=== PATIENT | female | born 1990 | race Caucasian/White ===

== ENCOUNTER 2018-01-08 15:37 | Emergency (ER) | payer SELFPAY ==
[~2018-01-08] VITALS: Ht 152.4 cm; Wt 70.3 kg
[~2018-01-08 15:37] MED LIST: HYDR-757 PO; SULF1TAB38 PO
--- OUTSIDE RECORDS SUMMARY | 2018-01-08 15:44 | XMS REPORT ---
Author Author Sumeet Gaston [facility] Address [address] [place], [place] [id number] Care Team Providers Care Care Transition Mgr Name Role Phone Sumeet Gaston PCP Allergies and Adverse Reactions Name Reaction Notes PENICILLINS tramadol Plan of Treatment Not available. Medications Active Name Start Date Estimated Completion Date SIG Comments Klonopin 1 mg oral tablet take 1 tablet by oral route daily doxycycline hyclate 100 mg oral capsule 07/12/2017 take 1 capsule (100 mg) by oral route 2 times per day for 10 days Name Start Date Expiration Date SIG Comments Celexa Oral Tablet 20 mg 01/20/2010 05/20/2010 take 1 tablet (20 mg) by oral route once daily for 30 days Ocella Oral Tablet 3-0.03 mg 01/21/2010 02/18/2010 take 1 tablet by oral route once daily for 28 days Xanax Oral Tablet 1 mg 01/20/2010 05/20/2010 take 1 tablet by oral route 2 times a day for 30 days Cortisporin Otic Drops, Suspension 3.5-10,000-1 mg-unit/mL-% 03/10/20102009 instill 4 drops into right ear by otic route 3 times per day for 7 days Sprintec (28) Oral Tablet 0.25-35 mg-mcg 03/19/2010 02/18/2011 take 1 tablet by oral route once daily for 28 days Flagyl Oral Tablet 500 mg 03/19/2010 03/26/2010 take 1 tablet (500 mg) by oral route every 12 hours for 7 days Ceftriaxone Injection Recon Soln 250 mg 03/19/2010 03/20/2010 inject 250 mg by intramuscular route as a single dose Doxycycline Hyclate Oral Tablet 100 mg 03/19/2010 04/02/2010 take 1 tablet ( 100 mg) by oral route every 12 hours for 14 days Promethazine-Codeine Oral Syrup 6.25-10 mg/5 mL 05/14/2010 take 5 milliliters by oral route every 6 hours as needed, not to exceed 30 mL in 24 hours Zithromax Z-Carter Oral Tablet 250 mg 05/14/2010 05/19/2010 take 2 tablets (500 mg) by oral route once daily for 1 day then 1 tablet (250 mg) by oral route once daily for 4 days Lortab Oral Tablet 5-500 mg 05/30/2010 06/06/2010 take 1 tablet by oral route every 6 hours as needed for pain for 7 days Flagyl Oral Tablet 500 mg 06/03/2010 06/13/2010 take 1 tablet (500 mg) by oral route every 12 hours for 10 days Tramadol Oral Tablet 50 mg 07/02/2010 take 1 tablet (50 mg) by oral route every 6 hours as needed Tylenol-Codeine #3 Oral Tablet 300-30 mg 08/06/2010 take 1 tablet by oral route every 4-6 hours as needed Discontinued Name Start Date Discontinued Date SIG Comments Tylenol-Codeine #3 Oral Tablet 300-30 mg 03/10/2010 05/14/2010 take 1 - 2 tablets by oral route every 6 hours as needed Loratadine Oral Tablet 10 mg 05/14/2010 07/12/2017 take 1 tablet (10 mg) by oral route once daily Nucynta Oral Tablet 100 mg 06/30/2010 07/02/2010 take 1 tablet (100 mg) by oral route every 6 hours as needed Too expensive Problem List Not available. Vital Signs Date Time BP-Sys(mm[Hg] BP-[place](mm[Hg]) HR(bpm) RR(rpm) Temp WT HT HC BMI BSA BMI Percentile O2 Sat(%) 07/12/2017 6:57:00 PM 120 mmHg 80 mmHg 130 bpm 98.8 F 187 lbs 65 in 31.12 kg/m2 1.97 m2 99 % 06/03/2010 11:06:00 AM 120 mmHg 79 mmHg 92 bpm 98.2 F 05/14/2010 12:50:00 PM 100 mmHg 60 mmHg 80 bpm 16 rpm 98.1 F 152 lbs 03/24/2010 9:47:00 AM 125 mmHg 77 mmHg 86 bpm 98.1 F 03/19/2010 1:32:00 PM 114 mmHg 69 mmHg 97 bpm 97.7 F 150.5 lbs 59.5 in 29.89 kg/m2 1.69 m2 03/10/2010 12:12:00 PM 104 mmHg 60 mmHg 88 bpm 18 rpm 98 F 147.187 lbs 59.5 in 29.2304 kg/m 1.6741 m 02/05/2010 9:49:00 AM 102 mmHg 62 mmHg 104 bpm 20 rpm 97.2 F 151.375 lbs 01/20/2010 8:36:00 AM 120 mmHg 70 mmHg 158.5 lbs Social History Name Description Comments Tobacco Current every day smoker Alcohol Use - Occasional lives with family member aunt Henrietta Reed lives at home Tobacco Use 3-4 cigs daily - Quit 02/15 History of Procedures Date Ordered Description Order Status 07/26/2017 11:33 AM URINE TEST Reviewed 02/05/2010 12:00 AM US EXAM PELVIC COMPLETE Reviewed 03/19/2010 12:00 AM THER/PROPH/DIAG INJ SC/IM Reviewed 03/19/2010 12:00 AM Rocephin, Per 250MG - 250MG Vial - [facility] 3281-4732-38 Reviewed 03/19/2010 12:00 AM SPECIMEN HANDLING OFFICE-LAB Reviewed 03/19/2010 12:00 AM CHLAMYDIA CULTURE Reviewed 03/19/2010 12:00 AM N.GONORRHOEAE DNA AMP PROB Reviewed 06/03/2010 12:00 AM CULTURE OTHR SPECIMN AEROBIC Reviewed 06/03/2010 12:00 AM CHYLMD TRACH DNA AMP PROBE Reviewed 06/03/2010 12:00 AM N.GONORRHOEAE DNA AMP PROB Reviewed Results Summary Date and Description Results 06/03/2010 4:55 PM NORMAL 07/12/2017 7:00 PM Test, Urine neg History Of Immunizations Not available. History of Past Illness Name Date of Onset Comments Anxiety depression Obesity Jan 20 2010 8:36AM Anxiety Disorder Jan 20 2010 8:36AM Depressive Disorder Jan 20 2010 8:36AM Panic Disorder Jan 20 2010 8:36AM Contraception, Oral Prescription Jan 20 2010 8:36AM Dysmenorrhea Jan 20 2010 8:36AM Family Planning Jan 20 2010 8:36AM Dysmenorrhea Feb 05 2010 9:50AM Pharyngitis, Acute Mar 10 2010 12:17PM Otitis Externa, Acute Mar 10 2010 12:17PM Dysmenorrhea Mar 19 2010 1:36PM Pelvic Inflammatory Disease Mar 19 2010 1:36PM Pelvic Inflammatory Disease Mar 19 2010 4:14PM Pelvic Inflammatory Disease Mar 24 2010 10:07AM Cough May 14 2010 12:53PM Rhinitis, Allergic May 14 2010 12:53PM Upper Respiratory Infections May 14 2010 12:53PM Pelvic Pain Jun 03 2010 11:08AM Abscess of left thigh Jul 12 2017 7:04PM Abscess of right thigh Jul 12 2017 7:04PM Payers Insurance Name Company Name Plan Name Plan Number Policy Number Policy Group Number Start Date [employer] [id number] Friday, 2008 History of Encounters Visit Date Visit Type Provider 07/12/2017 Office visit Sumeet Gaston APRN 06/03/2010 Office visit Moreno Guevara MD 05/14/2010 Office visit Shannen Le MD 03/24/2010 Office visit Moreno Guevara MD 03/19/2010 Office visit Moreno Guevara MD 03/10/2010 Office visit Carmen JENKINS 02/05/2010 Office visit Carmen JENKINS 01/20/2010 Office visit Bowen Guevara DO 06/18/2009 Office visit Shannen Le MD 04/18/2009 Office visit Shannen Le MD
--- OUTSIDE RECORDS SUMMARY | 2018-01-08 15:44 | XMS REPORT | Referral Summary ---
Author Author Via GREGORY Robison, [facility], [facility] Organization Via GREGORY Robison, [facility] Address Unknown Phone Unavailable Care Team Providers Care Extracorporeal Technician Name Role Phone Diana Monroe PCP Encounter VC Date(s): 12/25/14 - 12/25/14 Via GREGORY Robison, [address] [id number] Discharge Diagnosis: Abdomen pain Discharge Diagnosis: Folliculitis Discharge Disposition: 01-Home or Self Care Attending Physician: Diana Monroe DO Admitting Physician: Diana Monroe DO Vital Signs Most recent to 1 oldest [Reference Range]: Temperature Oral 36.3 degC [35.8-37.3 degC] (12/25/14 11:21 AM) Apical Heart Rate 86 bpm [60-100 bpm] (12/25/14 11:21 AM) Blood Pressure 120/76 mmHg [90-140/60-90 mmHg] (12/25/14 11:21 AM) SpO2 98 % (12/25/14 11:21 AM) Problem List Condition Effective Dates Status Health Status Informant Endometriosis(Confir Active patient med) Epilepsy(Confirmed) Active patient Folliculitis(Confirm Active ed) Obesity(Confirmed) Active patient Tobacco Active patient user(Confirmed) Allergies, Adverse Reactions, Alerts Substance Reaction Severity Status acetaminophen NAUSEA/VOMITING/ITCHING Active amoxicillin Adverse Reaction Active UNKNOWN HYDROcodone NAUSEA/VOMITING/ITCHING Active penicillin Adverse Reaction Active traMADol Active Medications clonazePAM 1 mg oral tablet 1 tabs, Oral, BID, # 60 tabs, 1 Refill(s) Start Date: 12/17/14 Stop Date: 02/15/15 Status: Ordered Depakote Oral, TID, 0 Refill(s) Start Date: 09/10/14 Status: Ordered Flomax 0.4 mg oral capsule 0.4 mg 1 caps, Oral, Daily, # 30 caps, 0 Refill(s), [id number], 1 caps Oral Daily Start Date: 12/27/14 Status: Ordered Flonase 50 mcg/inh nasal spray 2 sprays, Nasal, Daily, in each nostril Start Date: 09/17/14 Status: Ordered ibuprofen 800 mg oral tablet 1 tabs, Oral, TID, as needed for pain, # 30 tabs, 0 Refill(s), 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 Start Date: 09/10/14 Stop Date: 09/20/14 Status: Ordered [place] 7.5 mg-325 mg oral tablet 1 tabs, Oral, q6hr, as needed for pain, # 30 tabs, 0 Refill(s) Start Date: 12/28/14 Status: Ordered [place] 7.5 mg-325 mg oral tablet 1 tabs, Oral, q6hr, as needed for pain, # 30 tabs, 0 Refill(s) Start Date: 12/25/14 Status: Ordered promethazine 12.5 mg oral tablet 12.5 mg 1 tabs, Oral, q6hr, as needed for nausea/vomiting, # 60 tabs, 0 Refill(s ), Pharmacy: [facility]/pharmacy #[id number], 1 tabs Oral q6hr,PRN:as needed for nausea/ vomiting Start Date: 12/25/14 Stop Date: 12/26/15 Status: Ordered Zofran ODT 8 mg oral tablet, disintegrating 8 mg 1 tabs, Oral, q8hr, as needed for nausea/vomiting, # 30 tabs, 1 Refill(s), Pharmacy: [facility]/pharmacy #[id number], 1 tabs Oral q8hr,PRN:as needed for nausea/ vomiting Start Date: 12/25/14 Status: Ordered Results No data available for this section Immunizations No data available for this section Procedures No data available for this section Social History Social History Type Response Smoking Status Current some day smoker; Type: Cigarettes Assessment and Plan Extracted from: Title: Ambulatory Patient Education Author: Diana Monroe DO Date: 12/25/14 Family Medicine Abdominal Pain, Women Abdominal (stomach, pelvic, or belly ) pain can be caused by many things. It is important to tell your doctor: The location of the pain. Does it come and go or is it present all the time? Are there things that start the pain (eating certain foods, exercise)? Are there other symptoms associated with the pain (fever, nausea, vomiting, diarrhea)? All of this is helpful to know when trying to find the cause of the pain. CAUSES Stomach: virus or bacteria infection, or ulcer. Intestine: appendicitis (inflamed appendix ), regional ileitis (Crohn's disease ), ulcerative colitis (inflamed colon ), irritable bowel syndrome, diverticulitis (inflamed diverticulum of the colon ), or cancer of the stomach or intestine. Gallbladder disease or stones in the gallbladder. Kidney disease, kidney stones, or infection. Pancreas infection or cancer. Fibromyalgia (pain disorder ). Diseases of the female organs: Uterus: fibroid (non-cancerous ) tumors or infection. Fallopian tubes: infection or tubal . Ovary: cysts or tumors. Pelvic adhesions (scar tissue ). Endometriosis (uterus lining tissue growing in the pelvis and on the pelvic organs ). Pelvic congestion syndrome (female organs filling up with blood just before the menstrual period ). Pain with the menstrual period. Pain with ovulation (producing an egg ). Pain with an IUD (intrauterine device, control ) in the uterus. Cancer of the female organs. Functional pain (pain not caused by a disease, may improve without treatment ). Psychological pain. Depression. DIAGNOSIS Your doctor will decide the seriousness of your pain by doing an examination. Blood tests. X-rays. Ultrasound. CT scan (computed tomography, special type of X-ray ). MRI (magnetic resonance imaging ). Cultures, for infection. Barium enema (dye inserted in the large intestine, to better view it with X- rays ). Colonoscopy (looking in intestine with a lighted tube ). Laparoscopy (minor surgery, looking in abdomen with a lighted tube ). Major abdominal exploratory surgery (looking in abdomen with a large incision ). TREATMENT The treatment will depend on the cause of the pain. Many cases can be observed and treated at home. Ndzz-sja-hucvena medicines recommended by your caregiver. Prescription medicine. Antibiotics, for infection. control pills, for painful periods or for ovulation pain. Hormone treatment, for endometriosis. Nerve blocking injections. Physical therapy. Antidepressants. Counseling with a psychologist or psychiatrist. Minor or major surgery. HOME CARE INSTRUCTIONS Do not take laxatives, unless directed by your caregiver. Take aqfk-xgn-ojszusd pain medicine only if ordered by your caregiver. Do not take aspirin because it can cause an upset stomach or bleeding. Try a clear liquid diet (broth or water) as ordered by your caregiver. Slowly move to a bland diet, as tolerated, if the pain is related to the stomach or intestine. Have a thermometer and take your temperature several times a day, and record it. Bed rest and sleep, if it helps the pain. Avoid sexual intercourse, if it causes pain. Avoid stressful situations. Keep your follow-up appointments and tests, as your caregiver orders. If the pain does not go away with medicine or surgery, you may try: Acupuncture. Relaxation exercises (yoga, meditation). Group therapy. Counseling. SEEK MEDICAL CARE IF: You notice certain foods cause stomach pain. Your home care treatment is not helping your pain. You need stronger pain medicine. You want your IUD removed. You feel faint or lightheaded. You develop nausea and vomiting. You develop a rash. You are having side effects or an allergy to your medicine. SEEK IMMEDIATE MEDICAL CARE IF: Your pain does not go away or gets worse. You have a fever. Your pain is felt only in portions of the abdomen. The right side could possibly be appendicitis. The left lower portion of the abdomen could be colitis or diverticulitis. You are passing blood in your stools (bright red or black tarry stools, with or without vomiting). You have blood in your urine. You develop chills, with or without a fever. You pass out. MAKE SURE YOU: Understand these instructions. Will watch your condition. Will get help right away if you are not doing well or get worse. Document Released: 05/22/2008 Document Revised: 10/17/2012 Document Reviewed: [facility] [place] Patient Information 2014 [employer]. No follow up information was provided. Extracted from: Title: OV: abd pain, folliculitis Author: Diana Monroe DO Date: 12/25/14 Assessment/Plan 1.Abdomen pain RUQ sono ordered Zofran increased 8mg q6hr prn Add Promethazine as needed Refilled Pawhuska f/u pending sono results Ordered: Office Visit Level 3 Est 24604 Return to Clinic US Gallbladder 2.Folliculitis Bactrim DS x 10 days Warm water soaks and Hibclens baths to be continued. Ordered: Office Visit Level 3 Est 28236 Return to Clinic Orders: HYDROcodone-acetaminophen, 1 tabs, Oral, q6hr, as needed for pain, # 30 tabs, 0 Refill(s) ondansetron, 8 mg 1 tabs, Oral, q8hr, as needed for nausea/vomiting, # 30 tabs , 1 Refill(s), Pharmacy: [facility]/pharmacy #[id number], 1 tabs Oral q8hr,PRN:as needed for nausea/vomiting promethazine, 12.5 mg 1 tabs, Oral, q6hr, as needed for nausea/vomiting, # 60 tabs, 0 Refill(s), Pharmacy: [facility]/pharmacy #[id number], 1 tabs Oral q6hr,PRN:as needed for nausea/vomiting sulfamethoxazole-trimethoprim, 1 tabs, Oral, BID, X 10 days, # 20 tabs, 0 Refill(s), Pharmacy: [facility]/pharmacy #[id number] US Gallbladder Referrals to Other Providers Referred by: Diana Monroe DO
--- OUTSIDE RECORDS SUMMARY | 2018-01-08 15:44 | XMS REPORT ---
Author Author Sumeet Gaston [facility] Address [address] [place], [place] [id number] Care Team Providers Care Humane Agent Name Role Phone Sumeet Gaston PCP Allergies [...] of Procedures Date Ordered Description Order Status 02/05/2010 12:00 AM US EXAM PELVIC COMPLETE Reviewed 03/19/2010 12:00 AM THER/PROPH/DIAG INJ SC/IM Reviewed 03/19/2010 12:00 AM Rocephin, Per 250MG - 250MG Vial - [facility][NOTE 3] [id number] Reviewed 03/19/2010 12:00 AM SPECIMEN HANDLING OFFICE-LAB Reviewed 03/19/2010 12:00 AM CHLAMYDIA CULTURE Reviewed 03/19/2010 12:00 AM N.GONORRHOEAE DNA AMP PROB Reviewed 06/03/2010 12:00 AM CULTURE OTHR SPECIMN AEROBIC Reviewed 06/03/2010 12:00 AM CHYLMD TRACH DNA AMP PROBE Reviewed 06/03/2010 12:00 AM N.GONORRHOEAE DNA AMP PROB Reviewed Results Summary Date and Description Results 06/03/2010 4:55 PM NORMAL History Of Immunizations Not available. History of [...] Number Policy Group Number Start Date [facility] [id number] Friday, 2008 History of Encounters Visit Date [...]
--- OUTSIDE RECORDS SUMMARY | 2018-01-08 15:44 | XMS REPORT | Referral Summary ---
Author Author Via GREGORY Robison, [facility] Organization Via Elyssa GREGORY Field, [facility] Address Unknown Phone Unavailable Care Team Providers Care Shotgun Shell Loading Machine Operator Name Role Phone Diana Monroe PCP Encounter VC Date(s): 12/17/14 - 12/17/14 [facility] GREGORY Robison, [address] [address] Discharge Diagnosis: VOMITING ALONE Discharge Diagnosis: Epilepsy Discharge Diagnosis: Abdominal pain Discharge Disposition: 01-Home or Self Care Attending Physician: Diana Monroe DO Admitting Physician: Diana Monroe DO Vital Signs Most recent to 1 oldest [Reference Range]: Peripheral Pulse 104 bpm Rate [60-100 bpm] *HI* (12/17/14 3:03 PM) Blood Pressure 112/78 mmHg [90-140/60-90 mmHg] (12/17/14 3:03 PM) SpO2 98 % (12/17/14 3:03 PM) Problem List Condition Effective Dates Status Health [...] Daily, # 30 caps, 0 Refill(s), Pharmacy: [facility]/pharmacy # [id number], 1 caps Oral Daily Start Date: 12/27/14 Status: Ordered Flonase 50 mcg/inh nasal spray 2 sprays, Nasal, Daily, in each nostril Start Date: 09/17/14 Status: Ordered ibuprofen 800 mg oral tablet 1 tabs, Oral, TID, as needed for pain, # 30 tabs, 0 Refill(s), 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 Start Date: 09/10/14 Stop Date: 09/20/14 Status: Ordered Irving 7.5 mg-325 mg oral tablet 1 tabs, Oral, q6hr, as needed for pain, # 30 tabs, 0 Refill(s) Start Date: 12/28/14 Status: Ordered Irving 7.5 mg-325 mg oral tablet 1 tabs, Oral, q6hr, as needed for pain, # 30 tabs, 0 Refill(s) Start Date: 12/25/14 Status: Ordered promethazine 12.5 mg oral tablet 12.5 mg 1 tabs, Oral, q6hr, as needed for nausea/vomiting, # 60 tabs, 0 Refill(s ), Pharmacy: [facility]/pharmacy #[id number], 1 tabs Oral q6hr,PRN:as needed for nausea/ vomiting Start Date: 12/25/14 Stop Date: 12/26/15 Status: Ordered Zofran ODT 8 mg oral tablet, disintegrating 8 mg 1 tabs, Oral, q8hr, as needed for nausea/vomiting, # 30 tabs, 1 Refill(s), Pharmacy: [facility]/pharmacy #[id number], 1 tabs Oral q8hr,PRN:as needed for nausea/ vomiting Start Date: 12/25/14 Status: Ordered Results Hematology Most recent to 1 oldest [Reference Range]: WBC [4.8-10.8 8.7 10*3/uL 10*3/uL] (12/17/14 3:32 PM) RBC [4.00-5.20 4.44 10*6/uL 10*6/uL] (12/17/14 3:32 PM) Hgb [12.0-16.0 13.5 gm/dL gm/dL] (12/17/14 3:32 PM) Hct [37.0-47.0 %] 39.2 % (12/17/14 3:32 PM) MCV [82.0-99.0 fL] 88.3 fL (12/17/14 3:32 PM) MCH [27.0-32.0 pg] 30.4 pg (12/17/14 3:32 PM) MCHC [32.0-36.0 34.4 gm/dL gm/dL] (12/17/14 3:32 PM) RDW [11.5-14.5 %] 12.7 % (12/17/14 3:32 PM) Platelet [150-400 392 10*3/uL 10*3/uL] (12/17/14 3:32 PM) MPV [8.8-14.8 fL] 10.8 fL (12/17/14 3:32 PM) Immature 0.1 % Granulocytes (12/17/14 3:32 PM) [0.0-1.0 %] Neutrophils [51-75 39 % %] *LOW* (12/17/14 3:32 PM) Lymphocytes [20-46 52 % %] *HI* (12/17/14 3:32 PM) Monocytes [4-11 %] 7 % (12/17/14 3:32 PM) Eosinophils [0-4 %] 2 % (12/17/14 3:32 PM) Basophils [0-2 %] 0 % (12/17/14 3:32 PM) Neutro Absolute 3.41 10*3 [1.90-7.00 10*3] (12/17/14 3:32 PM) Lymph Absolute 4.50 10*3 [0.80-3.30 10*3] *HI* (12/17/14 3:32 PM) [place] Absolute 0.59 10*3 [0.30-1.00 10*3] (12/17/14 3:32 PM) Eos Absolute 0.14 10*3 [0.00-0.50 10*3] (12/17/14 3:32 PM) Baso Absolute 0.03 10*3 [0.00-0.20 10*3] (12/17/14 3:32 PM) Chemistry Most recent to 1 oldest [Reference Range]: Sodium Lvl [135-144 138 mEq/L mEq/L] (12/17/14 3:32 PM) Potassium Lvl 4.2 mEq/L 1 [3.5-5.2 mEq/L] (12/17/14 3:32 PM) Chloride [99-111 107 mEq/L mEq/L] (12/17/14 3:32 PM) CO2 [22-31 mEq/L] 21 mEq/L *LOW* (12/17/14 3:32 PM) AGAP [3-20] 10 (12/17/14 3:32 PM) BUN [7-19 mg/dL] 10 mg/dL (12/17/14 3:32 PM) Glucose Lvl [70-99 108 mg/dL mg/dL] *HI* (12/17/14 3:32 PM) Creatinine Lvl 0.75 mg/dL [0.57-1.11 mg/dL] (12/17/14 3:32 PM) eGFR [>60 mL/min] >60 mL/min 2 (12/17/14 3:32 PM) Calcium Lvl 9.2 mg/dL [8.9-10.5 mg/dL] (12/17/14 3:32 PM) Albumin Lvl [3.5-5.0 3.7 gm/dL gm/dL] (12/17/14 3:32 PM) Total Protein 6.2 gm/dL [6.4-8.3 gm/dL] *LOW* (12/17/14 3:32 PM) Globulin [1.8-4.0 2.5 gm/dL gm/dL] (12/17/14 3:32 PM) ALT [0-55 U/L] 13 U/L (12/17/14 3:32 PM) AST [5-34 U/L] 22 U/L (12/17/14 3:32 PM) Alk Phos [40-150 61 U/L U/L] (12/17/14 3:32 PM) Bili Total [0.2-1.2 0.3 mg/dL mg/dL] (12/17/14 3:32 PM) Lipase Lvl [8-78 43 U/L U/L] (12/17/14 3:32 PM) 1Result Comment: Specimen moderately hemolyzed. LDH, AST, Potassium and Direct Bilirubin may be affected. 2Result Comment: Multiply eGFR results by 1.21 for race. Immunizations No data available for this section Procedures No data available for this section Social History Social History Type Response Smoking Status Current some day smoker; Type: Cigarettes Assessment and Plan Extracted from: Title: Ambulatory Patient Education Author: Diana Monroe DO Date: 12/18/14 Family Medicine Abdominal Pain, Women Abdominal (stomach, [...] can be observed and treated at home. Xknt-hke-uuckwep medicines recommended by your caregiver. Prescription medicine. Antibiotics, for infection. control pills, for painful periods or for ovulation pain. Hormone treatment, for endometriosis. Nerve blocking injections. Physical therapy. Antidepressants. Counseling with a psychologist or psychiatrist. Minor or major surgery. HOME CARE INSTRUCTIONS Do not take laxatives, unless directed by your caregiver. Take cann-jtk-lzdqwkk pain medicine only if ordered by your [...] Released: 05/22/2008 Document Revised: 10/17/2012 Document Reviewed: [facility] Patient Information [address] [employer] [facility]. No follow up information was provided. Extracted from: Title: OV: seizure, abd pain Author: Diana Monroe DO Date: 12/17/14 Assessment/Plan 1.Abdominal pain 1L NS w/ 4mg Zofran given IV in the office. She reported no improvement in her symptoms following this. In fact, her belly was starting to hurt worse again. Evaluation at ER was discussed, but she really didn't want to go. RX for Irving written. Will check CBC, CMP, and lipase today and call her w/ results and plan in the AM. If no evidence of pancreatitis, will consider CT of abd as next step. Ordered: Office Visit Level 4 Est 49683 Return to Clinic 2.VOMITING ALONE Zofran 4mg IV in office. Ordered: Office Visit Level 4 Est 65038 Return to Clinic 3.Epilepsy She reports having plenty of Depakote on hand. I refilled Klonopin. Need records from [place] specialists before I can send her on to local epileptologist. Ordered: Office Visit Level 4 Est [id number] Return to Clinic Orders: clonazePAM, 1 tabs, Oral, BID, # 60 tabs, 1 Refill(s) HYDROcodone-acetaminophen, 1 tabs, Oral, q6hr, as needed for pain, # 20 tabs, 0 Refill(s) Referrals to Other Providers Referred by: Diana Monroe DO
--- OUTSIDE RECORDS SUMMARY | 2018-01-08 15:45 | XMS REPORT | Continuity of Care Document ---
Author Author [facility] Organization [facility] Address Unknown Phone Unavailable Allergies Active Description Code Type Severity Reaction Onset Reported/Identified Relationship to Patient Clinical Status Yes AMOXICILLIN [id number] DRUG N/A N/A Yes CODEINE [id number] DRUG N/A N/A Yes PENICILLIN [id number] CLASS N/A N/A Yes PENICILLINS (CLASS) [id number] CLASS N/A N/A Yes Amoxicillin Drug Allergy Adverse Reaction 02/21/2011 Yes Amoxicillin Drug Allergy N/A Adverse Reaction 02/21/2011 Yes Penicillins Drug Allergy Adverse Reaction 02/21/2011 Yes Penicillins Drug Allergy N/A Adverse Reaction 02/21/2011 Yes No Allergy Information Drug Allergy 02/23/2011 Yes No Allergy Information Drug Allergy N/A N/A 06/24/2013 Yes acetaminophen NKMA N/A NAUSEA/VOMITING/ITCHING 12/05/2013 Yes amoxicillin NKMA N/A Adverse Reaction UNKNOWN 12/05/2013 Yes HYDROcodone NKMA N/A NAUSEA/VOMITING/ITCHING 12/05/2013 Yes penicillin NKMA N/A Adverse Reaction 12/05/2013 Yes traMADol NKMA N/A N/A 12/05/2013 Yes ketorolac ketorolac Drug Allergy Unknown HIVES 05/07/2014 Yes acetaminophen acetaminophen Drug Allergy Mild HIVES 11/07/2014 Yes hydrocodone bit hydrocodone bit Drug Allergy Mild HIVES 11/07/2014 Yes Amoxicillin amoxicillin Drug Allergy Unknown HIVES/SWELLING 11/07/2014 Yes Penicillins Penicillins Drug Allergy Unknown HIVES 11/07/2014 Yes tramadol tramadol Drug Allergy Unknown SEIZURES 11/07/2014 Medications There is no data. Problems Date Dx Coded Attending Type Code Diagnosis Diagnosed By 10/03/2012 Juve Villanueva MD Final 305.1 TOBACCO USE DISORDER 10/03/2012 Juve Villanueva MD Final 616.4 VULVAR ABSCESS NEC 01/19/2013 Norman Atkinson MD Final 305.1 TOBACCO USE DISORDER 01/19/2013 Norman Atkinson MD Final 709.9 SKIN DISORDER NOS 01/19/2013 Norman Atkinson MD Admitting 782.2 LOCAL SUPERF SWELLING 01/24/2013 Nash Cobos MD Final 305.1 TOBACCO USE DISORDER 01/24/2013 Nash Cobos MD Final 614.8 FE PELV INFLAM DIS NEC 01/24/2013 Nash Cobos MD Final 623.5 NONINF VAG LEUKORRHEA 01/24/2013 Nash Cobos MD Admitting 625.9 FE GENITAL SYMPTOMS NOS 01/24/2013 Nash Cobos MD Final 789.09 ABDOMINAL PAIN-SITE NEC 06/24/2013 Binh Lindquist DO Final 305.1 TOBACCO USE DISORDER 06/24/2013 Binh Lindquist DO Final 682.6 LEG CELLULITIS 06/24/2013 Binh Lindquist DO Admitting 782.2 LOCAL SUPERF SWELLING 06/24/2013 Binh Lindquist DO Final 785.0 TACHYCARDIA NOS 09/11/2014 Binh Sorto MD Final 305.1 TOBACCO USE DISORDER 09/11/2014 Binh Sorto MD Final 723.1 CERVICALGIA 09/11/2014 Binh Sorto MD Reason 724.5 BACKACHE, UNSPECIFIED 09/11/2014 Binh Sorto MD Final 848.9 UNSPECIFIED SITE OF SPRAIN AND STRAIN 09/11/2014 Binh Sorto MD Final 924.9 CONTUSION OF UNSPECIFIED SITE Procedures Code Description Performed By Performed On 86.04 OTHER SKIN SUBQ I D Fausto STINSON, Renee L 12/16/2012 Results Test Result Range GLUCOSE (POC) - 12/16/12 10:39 GLUCOSE (POC) 93 mg/dL 70-99 CHEM/HEM PROFILE-BEDSIDE - 05/07/14 00:30 POTASSIUM 3.7 mmol/L 3.5-5.3 METHOD Bedside ANION GAP 11 mmol/L 10-20 METHOD Bedside GLUCOSE 88 mg/dL 70-99 BLOOD UREA NITROGEN 9 mg/dL 7-20 CREATININE 0.9 mg/dL 0.6-1.0 HEMOGLOBIN 12.6 gm/dL 12.0-16.0 HEMATOCRIT 37.0 % 37.0-47.0 SODIUM 137 mmol/L 135-148 CHLORIDE 108 mmol/L 98-110 CARBON DIOXIDE 23 mmol/L 21-32 CALCIUM IONIZED 4.6 mg/dL 4.5-5.3 CBC W/DIFF - 05/07/14 00:35 EOSINOPHIL # 0.1 k/cumm 0.1-0.5 EOSINOPHIL % 1 % 2-4 GRANULOCYTE # 4.6 k/cumm 2.0-9.0 GRANULOCYTE % 50 % 50-75 LYMPHOCYTE # 3.9 k/cumm 1.0-4.0 LYMPHOCYTE % 43 % 20-30 MEAN CELL HGB 31.0 pg 27.0-33.0 MEAN CELL HGB CONCENTRATION 34.9 g/dL 32.0-37.0 MEAN CELL VOLUME 89.1 fl 80.0-100.0 MONOCYTE # 0.5 k/cumm 0.1-1.0 MONOCYTE % 6 % 4-6 RED BLOOD CELL 4.67 m/cumm 4.00-6.00 RED CELL DISTRIBUTION WIDTH 12.0 % 11.0-15.6 WHITE BLOOD CELL 9.1 k/cumm 5.0-10.0 HEMOGLOBIN 14.5 gm/dL 12.0-16.0 HEMATOCRIT 41.6 % 37.0-47.0 PLATELET COUNT 359 k/cumm 150-400 HEPATIC FUNCTION PANEL - 05/07/14 00:35 BILI UNCONJUGATED 0.2 mg/dL 0.0-0.7 AST/SGOT 11 Units/L 10-37 ALT/SGPT 21 Units/L < 66 TOTAL PROTEIN 7.1 gm/dL 6.4-8.2 ALBUMIN 3.4 gm/dL 3.4-5.0 BILI TOTAL 0.3 mg/dL 0.0-1.0 ALKALINE PHOSPHATASE TOTAL 66 IU/L 45-117 BILI CONJUGATED 0.1 mg/dL 0.0-0.3 URINALYSIS, ROUTINE - 05/07/14 00:35 UA LEUKOCYTE ESTERASE DIPSTICK NEGATIVE NEGATIVE UA NITRITE DIPSTICK NEGATIVE NEGATIVE UA PROTEIN DIPSTICK NEGATIVE NEGATIVE UA GLUCOSE DIPSTICK NEGATIVE NEGATIVE UA KETONE DIPSTICK NEGATIVE NEGATIVE UA UROBILINOGEN DIPSTICK NORMAL NORMAL UA BILIRUBIN DIPSTICK NEGATIVE NEGATIVE UA BLOOD DIPSTICK NEGATIVE NEGATIVE UA SPECIFIC GRAVITY 1.005 1.015-1.025 UR PH 7.0 5.0-7.0 UR TEST - 05/07/14 00:35 UR TEST NEGATIVE NEGATIVE URINALYSIS, ROUTINE - 11/07/14 14:04 UA LEUKOCYTE ESTERASE DIPSTICK NEGATIVE NEGATIVE UA NITRITE DIPSTICK NEGATIVE NEGATIVE UA PROTEIN DIPSTICK TRACE NEGATIVE UA GLUCOSE DIPSTICK NEGATIVE NEGATIVE UA KETONE DIPSTICK TRACE NEGATIVE UA UROBILINOGEN DIPSTICK NORMAL NORMAL UA BILIRUBIN DIPSTICK 1+ NEGATIVE UA BLOOD DIPSTICK 2+ NEGATIVE UA SPECIFIC GRAVITY 1.025 1.015-1.025 UR PH 6.0 5.0-7.0 UA MICROSCOPIC - 11/07/14 14:04 UA BACTERIA 2+ NEGATIVE UA EPITHELIAL CELLS 2+ epi/hpf 0 - 1+ UA RBC 0-3 rbc/hpf 0 - 3 UA VOLUME FOR EXAM 12.0 mL (12mL STD) UA WBC 2-5 wbc/hpf 0 - 5 UR TEST - 11/07/14 14:06 UR TEST NEGATIVE NEGATIVE CBC W/DIFF - 12/09/14 12:06 BASOPHIL # 0.0 k/cumm 0.0-0.2 BASOPHIL % 1 % 0-1 EOSINOPHIL # 0.1 k/cumm 0.1-0.5 EOSINOPHIL % 1 % 2-4 GRANULOCYTE # 3.7 k/cumm 2.0-9.0 GRANULOCYTE % 54 % 50-75 LYMPHOCYTE # 2.6 k/cumm 1.0-4.0 LYMPHOCYTE % 38 % 20-30 MEAN CELL HGB 30.5 pg 27.0-33.0 MEAN CELL HGB CONCENTRATION 35.3 g/dL 32.0-37.0 MEAN CELL VOLUME 86.3 fl 80.0-100.0 MONOCYTE # 0.4 k/cumm 0.1-1.0 MONOCYTE % 6 % 4-6 RED BLOOD CELL 4.98 m/cumm 4.00-6.00 RED CELL DISTRIBUTION WIDTH 12.5 % 11.0-15.6 WHITE BLOOD CELL 6.9 k/cumm 5.0-10.0 HEMOGLOBIN 15.2 gm/dL 12.0-16.0 HEMATOCRIT 43.0 % 37.0-47.0 PLATELET COUNT 371 k/cumm 150-400 HEPATIC FUNCTION PANEL - 12/09/14 12:06 BILI UNCONJUGATED 0.2 mg/dL 0.0-0.7 AST/SGOT 31 Units/L 10-37 ALT/SGPT 22 Units/L < 66 TOTAL PROTEIN 7.4 gm/dL 6.4-8.2 ALBUMIN 3.5 gm/dL 3.4-5.0 BILI TOTAL 0.3 mg/dL 0.0-1.0 ALKALINE PHOSPHATASE TOTAL 75 IU/L 45-117 BILI CONJUGATED < 0.1 mg/dL 0.0-0.3 PROLACTIN - 12/09/14 12:06 PROLACTIN 7.5 ng/mL 1.8-29.2 CHEM/HEM PROFILE-BEDSIDE - 12/09/14 12:08 POTASSIUM 3.9 mmol/L 3.5-5.3 METHOD Bedside ANION GAP 19 mmol/L 10-20 METHOD Bedside GLUCOSE 108 mg/dL 70-99 BLOOD UREA NITROGEN 10 mg/dL 7-20 CREATININE 0.7 mg/dL 0.6-1.0 HEMOGLOBIN 15.0 gm/dL 12.0-16.0 HEMATOCRIT 44.0 % 37.0-47.0 SODIUM 141 mmol/L 135-148 CHLORIDE 104 mmol/L 98-110 CARBON DIOXIDE 23 mmol/L 21-32 CALCIUM IONIZED 4.9 mg/dL 4.5-5.3 Encounters ACCT No. Visit Date/Time Discharge Status Pt. Type Provider Facility Loc./Unit Complaint [id number] 06/24/2013 20:38:00 06/24/2013 21:40:00 DIS Emergency Binh Lindquist DO [facility] [id number] 01/24/2013 09:12:00 01/24/2013 12:05:00 DIS Emergency Nash Cobos MD [facility] [id number] 01/19/2013 12:25:00 01/19/2013 13:13:00 DIS Emergency Norman Atkinson MD [facility] [id number] 10/03/2012 17:41:00 10/03/2012 18:10:00 DIS Emergency Juve Villanueva MD [facility] [id number] 08/22/2013 15:54:00 08/22/2013 17:48:00 DIS Emergency [id number] 09/10/2014 17:36:00 09/10/2014 21:21:00 DIS Emergency Binh Sorto MD [facility] ED back pain [id number] 07/12/2017 19:53:51 07/12/2017 23:59:59 CLS Outpatient Sumeet Gaston [id number] 12/05/2017 13:29:31 Document Registration [id number] 12/05/2017 13:25:18 Document Registration [id number] 08/25/2017 22:58:21 Document Registration [id number] 08/25/2017 18:28:25 Document Registration [id number] 08/25/2017 17:22:01 Document Registration [id number] 06/20/2017 09:42:53 Document Registration [id number] 06/20/2017 09:33:49 Document Registration [id number] 12/09/2014 11:29:00 12/09/2014 13:53:00 DIS Emergency Miller STINSON, [facility] [id number] 11/07/2014 13:04:00 11/07/2014 15:43:00 DIS [id number] 05/06/2014 23:37:00 05/07/2014 02:30:00 DIS Emergency Tae STINSON, Aki [facility]REE[facility] [id number] 12/16/2012 08:59:00 12/16/2012 10:41:00 DIS Emergency Fausto STINSON, Renee [facility] [id number] 10/18/2012 07:31:00 10/18/2012 07:59:00 DIS [id number] 12/10/2014 01:59:05 ACT Document Registration [id number] 08/16/2013 15:04:00 08/16/2013 23:59:59 CLS Outpatient
[2018-01-08 16:23] VITALS: BP 120/82
[2018-01-08 16:41] LABS: BILIRUBIN,URINE NEGATIVE (NEGATIVE); CLARITY,URINE SLIGHTLY CLOUDY; COLOR,URINE YELLOW; GLUCOSE, URINE (UA) NEGATIVE (NEGATIVE); KETONES,URINE NEGATIVE (NEGATIVE); LEUKOCYTE ESTERASE ,URINE NEGATIVE (NEGATIVE); NITRITE,URINE NEGATIVE (NEGATIVE); PH,URINE 7 (5-9); PROTEIN,URINE NEGATIVE (NEGATIVE); UROBILINOGEN,URINE NORMAL (NORMAL)
[2018-01-08 16:50] LABS: BACTERIA,URINE TRACE /HPF
--- NOTE | 2018-01-08 16:52 | ED Psychosocial ---
General Chief Complaint: Substance Abuse Stated Complaint: WITHDRAWAL SYMPTOMS Nursing Triage Note: PT TO ED 8 W/ C/O WITHDRAWEL SYMPTOMS ONSET TODAY AFTER STOPPING TAKING NARCOTICS YESTERDAY. PT REPORTS HAS BEEN ADDICTED TO NARCOTICS SINCE SHE WAS 11. ALSO REPORTS USE OF METH (WHICH SHE DOES NOT WANT FAMILY TO KNOW) AND MARIJUANA. NO OTHER C/O VOICED Source: patient Exam Limitations: no limitations History of Present Illness Date Seen by Provider: Jan 08, 2018 Time Seen by Provider: 16:23 Initial Comments PT ARRIVES VIA POV FROM HOME WITH A MALE AND AN OLDER FEMALE PT STATES "IM HAVING WITHDRAWL FROM [facility]" PT STATES SHE HAS BEEN ADDICTED TO PRESCRIPTION DRUGS SINCE SHE WAS 12--USES [facility] AND HAS ALSO USED BENZODIAZEPINES IN THE PAST, WHEN SHE COULD NOT GET [facility] STATES SHE LAST TOOK 1 HYDROCODONE 10 MG + 1 PERCOCET 10 MG AT 2100 LAST PM PT ALSO HAD A BLOODY GISELA LAST PM PT DENIES EVER USING ANY OTHER DRUGS TO ME ( OTHER PEOPLE WERE PRESENT IN THE ROOM WHEN I HAD THIS DISCUSSION WITH PT, BUT PT DID ADMIT TO RN THAT SHE ALSO ROUTINELY ABUSES METH AND THC (WHEN OTHER PEOPLE WHO CAME WITH HER, WERE NOT PRESENT) BUT DID NOT WANT THE PEOPLE THAT ARE IN ROOM WITH HER NOW TO KNOW THIS. PT STATES TODAY SHE HAS BEEN HAVING NAUSEA AND DIARRHEA LEGS ACHE HAS BEEN HAVING HOT AND COLD SWEATS TODAY HAS HAD ALL THESE SAME SYMPTOMS PT STATES SHE HAS "CALLED EVERY PLACE IN [place]" AND STATES "NO ONE WILL TAKE HER, BECAUSE SHE DOES NOT HAVE INSURANCE" STATES 'SOMEONE TOLD ME TO COME HERE AND YOU COULD GET ME INTO [facility]" BUT PT HAS NOT ATTEMPTED TO CONTACT [facility] AT ANY TIME THERE IS NOTHING NEW WITH HER ONGOING ADDICTION ISSUES, PT STATES "I'M JUST TIRED OF IT" STATES "I'M TIRED OF WAKING UP EVERY MORNING AND THE ONLY THING I THINK ABOUT IS DRUGS" PT HAS BEEN IN DRUG REHAB BEFORE--LAST TIME WAS IN 2014 IN [facility] IN [place], [place] PT HAS BEEN GOING TO THERAPY AT A [facility] IN [place], BUT ONLY STARTED SEEING THEM LAST MONTH FOR DRUG COUNSELING, AND ONLY HAD ONE VISIT. NEXT APPOINTMENT IS 01/11/18 EXPLAINED TO PT AND PEOPLE IN THE ROOM THAT OUR ROLE IN ER WAS TO DO A MEDICAL SCREENING AND EXPLAINED TO THEM WHAT THIS ENTAILED. ALSO EXPLAINED TO THEM THAT WE DID NOT HAVE A "DETOX" OR DRUG REHAB UNIT HERE IN THIS HOSPITAL 164[facility]--PT JUST LEFT ER, STATING TO ANOTHER STAFF MEMBER THAT THEY WERE LEAVING BECAUSE I WASN'T GIVING HER ANY DRUGS ( THIS WAS NEVER EVEN BROUGHT UP IN MY CONVERSATION WITH THE PT ) PT WAS GIVEN THE NUMBER FOR OUTPATIENT DRUG TREATMENT AT [facility] BY STAFF MEMBER. PCP: SEES [facility] [place] Allergies and Home Medications Allergies Coded Allergies: Penicillins (Verified Allergy, 08/22/13) Home Medications Hydrocodone Bit/Acetaminophen 1 Each Tablet, 1 EA PO Q6H PRN for MILD PAIN Prescribed by: KISHA SHOEMAKER on 08/22/131740 Trimethoprim/Sulfamethoxazole 1 Ea Tablet, 1 EA PO BID FOR INFECTION Prescribed by: KISHA SHOEMAKER on 08/22/131740 Patient Home Medication List Home Medication List Reviewed: Yes Constitutional: no symptoms reported Respiratory: no symptoms reported Cardiovascular: no symptoms reported Gastrointestinal: see HPI, nausea Genitourinary: no symptoms reported LMP: December 07, 2017 (NORMAL. NO CONTROL) Musculoskeletal: see HPI Skin: no symptoms reported Psychiatric/Neurological: See HPI Past Rrsyngp-Mvrqfw-Scffpa Hx Patient Social History Alcohol Use: Occasionally Uses Recreational Drug Use: Yes (METH, MARIJUANA, NARCOTICS, XANAX) Smoking Status: Current Everyday Smoker (< 1/2 PPD) Type Used: Cigarettes Recent Foreign Travel: No Contact w/Someone Who Travel: No Recent Infectious Disease Expo: No Recent Hopitalizations: No Physical Abuse: No Sexual Abuse: No Mistreated: No Fear: No Immunizations Up To Date Date of Influenza Vaccine: Jun 09, 2013 Past Medical History Surgeries: Yes (LAPAROSCOPY FOR ENDOMETRIOSIS/PELVIC PAIN ) Respiratory: No Cardiac: Yes (TACHYCARDIA) Neurological: Yes (PT HAS HAD SEIZURES--AFTER SHE HAD BEEN GIVEN TRAMADOL--WAS ON SEIZURE MEDICATION IN PAST-DEPAKOTE + ATIVAN, BUT CLAIMS HAS NOT BEEN ON THEM FOR OVER A YEAR, PER PT ON 01/08/18) : No Female Reproductive Disorders: Endometriosis Genitourinary: No Gastrointestinal: No Musculoskeletal: No Endocrine: No HEENT: No Cancer: No Psychosocial: No Nursing Suicide Risk Score: 0 Physical Exam Vital Signs Vital Signs - First Documented 01/08/18 16:23 Temp 97.6 Pulse 88 Resp 20 B/P (MAP) 120/82 (95) Pulse Ox 99 O2 Delivery Room Air Capillary Refill : Less Than 3 Seconds General Appearance: WD/WN, no apparent distress Neurologic/Psychiatric: alert, oriented x 3 Appearance/Memory: no memory impairment, other (NO SUICIDAL OR HOMICICAL SUGGESTIONS) Progress/Results/Core Measures Results/Orders Lab Results Laboratory Tests Test 01/08/18 16:26 Range/Units Urine Color YELLOW Urine Clarity SLIGHTLY CLOUDY Urine pH 7 5-9 Urine Specific [place] 1.015 L 1.016-1.022 Urine Protein NEGATIVE NEGATIVE Urine Glucose (UA) NEGATIVE NEGATIVE Urine Ketones NEGATIVE NEGATIVE Urine Nitrite NEGATIVE NEGATIVE Urine Bilirubin NEGATIVE NEGATIVE Urine Urobilinogen NORMAL NORMAL MG/DL Urine Leukocyte Esterase NEGATIVE NEGATIVE Urine RBC (Auto) 1+ H NEGATIVE Urine RBC NONE /HPF Urine WBC 5-10 H /HPF Urine Squamous Epithelial Cells 5-10 /HPF Urine Crystals NONE /LPF Urine Bacteria TRACE /HPF Urine Casts NONE /LPF Urine Mucus NEGATIVE /LPF Urine Culture Indicated NO Urine Opiates Screen NEGATIVE NEGATIVE Urine Oxycodone Screen NEGATIVE NEGATIVE Urine Methadone Screen NEGATIVE NEGATIVE Urine Propoxyphene Screen NEGATIVE NEGATIVE Urine Barbiturates Screen NEGATIVE NEGATIVE Ur Tricyclic Antidepressants Screen NEGATIVE NEGATIVE Urine Phencyclidine Screen NEGATIVE NEGATIVE Urine Amphetamines Screen POSITIVE H NEGATIVE Urine Methamphetamines Screen NEGATIVE NEGATIVE Urine Benzodiazepines Screen POSITIVE H NEGATIVE Urine Cocaine Screen NEGATIVE NEGATIVE Urine Cannabinoids Screen NEGATIVE NEGATIVE My Orders Orders - HERNANDO BRICENO DO Ua Culture If Indicated (01/08/18 16:35) Thyroid Analyzer (01/08/18 16:35) Drug Screen Stat (Urine) (01/08/18 16:35) Cbc With Automated Diff (01/08/18 16:35) Comprehensive Metabolic Panel (01/08/18 16:35) Alcohol (01/08/18 16:35) Acetaminophen (01/08/18 16:35) Salicylate (01/08/18 16:35) Ekg Tracing (01/08/18 16:35) Hcg,Qualitative Serum (01/08/18 16:35) Vital Signs/I&O 01/08/18 16:23 Temp 97.6 Pulse 88 Resp 20 B/P (MAP) 120/82 (95) Pulse Ox 99 O2 Delivery Room Air Blood Pressure Mean: 95 Departure Impression Primary Impression: Illicit drug use Disposition: AGAINST MEDICAL ADVICE Condition: Against Medical Advice Departure-Patient Inst. Referrals: NO,LOCAL PHYSICIAN (PCP/Family) Primary Care Physician HERNANDO BRICENO DO Jan 08, 2018 16:52
[2018-01-08 16:55] LABS: AMPHETAMINE SCREEN, URINE POSITIVE (NEGATIVE); BARBITURATE SCREEN URINE NEGATIVE (NEGATIVE); BENZODIAZEPINES SCREEN URINE POSITIVE (NEGATIVE); CANNABINOID SCREEN, URINE NEGATIVE (NEGATIVE); COCAINE SCREEN URINE NEGATIVE (NEGATIVE); METHADONE STAT NEGATIVE (NEGATIVE); METHAMPHETAMINE SCREEN URINE S NEGATIVE (NEGATIVE); OPIATE SCREEN URINE NEGATIVE (NEGATIVE); OXYCODONE STAT NEGATIVE (NEGATIVE); PROPOXYPHENE STAT NEGATIVE (NEGATIVE); TRICYCLIC ANTIDEPRESSANTS SCRE NEGATIVE (NEGATIVE)
== END 2018-01-08 16:41 | disposition left against medical advice (07) ==
LOC: EDUNIT# 15:37 → ER 15:39
DX: F11.23 Opioid dependence with withdrawal (principal); F12.90 Cannabis use, unspecified, uncomplicated; F17.210 Nicotine dependence, cigarettes, uncomplicated; Z88.0 Allergy status to penicillin
CPT/HCPCS: 80306; 81000; 99283